=== PATIENT | female | born 1965 | race Asian ===

== ENCOUNTER 2018-08-28 08:00 | Day surgery (SDC) | payer BC ==
[~2018-08-28] VITALS: Ht 149.9 cm; Wt 43.6 kg
[2018-08-28 08:16] VITALS: Ht 149.9 cm; Wt 43.6 kg
[2018-08-28 08:38] VITALS: BP 111/70; PULSE 81; RESP 20
[2018-08-28] MEDS ORDERED: HYDROXYZINE (08:39)
[2018-08-28] MEDS ORDERED: ATROPINE 1 MG/10 ML SYRINGE ONE (10:02)
[2018-08-28] MEDS ORDERED: MIDAZOLAM 1 MG/ML 2 ML INJ ONE ×2 (10:03)
[2018-08-28] MEDS ORDERED: FENTAnyl 50 MCG/ML VIAL ONE (10:03)
[2018-08-28 10:14] VITALS: BP 91/58; PULSE 76; RESP 14
== END 2018-08-28 12:00 | disposition home or self-care (01) ==
LOC: GIL 08:00
PROVIDERS: ATTEND Internal Medicine Gastroenterology
DX: Z12.11 Encounter for screening for malignant neoplasm of colon (principal); Q43.8 Other specified congenital malformations of intestine
CPT/HCPCS: 45378; J0461; J2250; J3010